=== PATIENT | male | born 1990 | race Caucasian/White ===

== ENCOUNTER 2018-11-30 01:47 | Emergency (ER) | payer OTHER ==
[~2018-11-30] VITALS: Ht 170.2 cm; Wt 113.4 kg
[2018-11-30] MEDS ORDERED: TENCON 50-3251 EACH PO (06:27)
== END 2018-11-30 06:36 | disposition home or self-care (01) ==
LOC: ER 01:47
DX: R51 Headache (principal)

== ENCOUNTER 2023-05-01 20:59 | Emergency (ER) | payer OTHER ==
[~2023-05-01] VITALS: Ht 170.2 cm; Wt 104.3 kg
[~2023-05-01 20:59] MED LIST: TENCON 50-3251 EACH PO
== END 2023-05-02 00:17 | disposition home or self-care (01) ==
LOC: ER 20:59
DX: J06.9 Acute upper respiratory infection, unspecified (principal); Z91.013 Allergy to seafood; Z20.822 Contact with and (suspected) exposure to COVID-19